=== PATIENT | female | born 1990 | race Two or more races ===

== ENCOUNTER → 2025-10-06 | Outpatient (CLI) | payer OTHER, SELFPAY ==
[2025-10-06 12:48] LABS: Opiate Screen,Urine Negative (Negative)
== END | disposition home or self-care (01) ==
LOC: SLDO 11:36
PROVIDERS: Referring Provider Orthopaedic Surgery; Visit Provider Orthopaedic Surgery
DX: Z51.81 Encounter for therapeutic drug level monitoring (principal)
CPT/HCPCS: 80307